=== PATIENT | female | born 1980 | race Caucasian/White ===

== ENCOUNTER 2018-09-12 11:37 | Emergency (ER) | payer SELFPAY ==
[2018-09-12 11:48] VITALS: BP 169/102
--- NOTE | 2018-09-12 12:30 | ED ---
Substance Abuse/Use - HPI Summary HPI Summary: This patient is a 37 year old F presenting to [facility] with a chief complaint withdrawal symptoms. Pt reports she has been on pain medications for 20 years, and would take 60 mg morphine a couple times a day, and recently went off of them cold turkey. She reports vomiting, chills, nausea, diarrhea, abdominal pain , decreased urination, dark urine, and sore back. Pt requests detox, and knows her doctors office has a detox program. Per triage, the patient rates the pain 10/10 in severity. - History Of Current Complaint Chief Complaint: EDDetoxRequest Stated Complaint: BACK PAIN/NAUSEA/VOMITING/DARK URINE PER PT Time Seen by Provider: 09/12/18 12:15 Hx Obtained From: Patient Onset/Duration of Drug/ETOH Abuse: Years - 20 years Ingestion History: Type/Name Of Drug - Morphine, Amount Ingested - 40 mg Timing Of Abuse: Daily Severity Currently: Severe - 10/10 Aggravating Factor(s): Nothing Alleviating Factor(s): Nothing Associated Signs And Symptoms: Nausea, Vomiting, Diarrhea, Other: - pos - chills , abdominal pain, decreased urination, dark urine, sore back - Allergies/Home Medications Allergies/Adverse Reactions: Allergies Allergy/AdvReac Type Severity Reaction Status Date / Time No Known Allergies Allergy Verified 09/12/18 11:49 PMH/Surg Hx/FS Hx/Imm Hx Cardiovascular History: Reports: Hx Hypertension Sensory History: Denies: Hx Legally Blind Infectious Disease History: No Infectious Disease History: Denies: Traveled Outside the [place] in Last 30 Days - Family History Known Family History: Positive: Hypertension Negative: Diabetes - Social History Alcohol Use: Occasionally Substance Use Type: Reports: Other Substance Use Comment - Amount & Last Used: opiates Smoking Status (MU): Unknown if Ever Smoked Review of Systems Positive: Chills Positive: Abdominal Pain, Vomiting, Diarrhea, Nausea Positive: frequency - decreased urination, other - pos - dark urine Positive: Other - pos - sore back All Other Systems Reviewed And Are Negative: Yes Physical Exam - Summary Physical Exam Summary: VITAL SIGNS: Reviewed. GENERAL: Patient is a well-developed and nourished female who is lying comfortable in the stretcher. Patient is not in any acute respiratory distress. HEAD AND FACE: No signs of trauma. No ecchymosis, hematomas or skull depressions. No sinus tenderness. EYES: PERRLA, EOMI x 2, No injected conjunctiva, no nystagmus. EARS: Hearing grossly intact. Ear canals and tympanic membranes are within normal limits. MOUTH: Oropharynx within normal limits. NECK: Supple, trachea is midline, no adenopathy, no JVD, no carotid bruit, no c- spine tenderness, neck with full ROM. CHEST: Symmetric, no tenderness at palpation LUNGS: Clear to auscultation bilaterally. No wheezing or crackles. CVS: Regular rate and rhythm, S1 and S2 present, no murmurs or gallops appreciated. ABDOMEN: Soft, non-tender. No signs of distention. No rebound no guarding, and no masses palpated. Bowel sounds are normal. EXTREMITIES: FROM in all major joints, no edema, no cyanosis or clubbing. NEURO: Alert and oriented x 3. No acute neurological deficits. Speech is normal and follows commands. SKIN: Dry and warm. Triage Information Reviewed: Yes Vital Signs On Initial Exam: Initial Vitals Temp Pulse Resp BP Pulse Ox 97.2 F 102 18 169/102 99 09/12/18 11:47 09/12/18 11:47 09/12/18 11:47 09/12/18 11:47 09/12/18 11:47 Vital Signs Reviewed: Yes Diagnostics - Vital Signs Vital Signs Temp Pulse Resp BP Pulse Ox 09/12/18 11:47 97.2 F 102 18 169/102 99 - Laboratory Lab Statement: Any lab studies that have been ordered have been reviewed, and results considered in the medical decision making process. Re-Evaluation - Re-Evaluation First Eval Re-Evaluation Time: 01:14 Comment: When going to check up on pt was revealed pt had left. Course/Dx - Course Assessment/Plan: This patient is a 37 year old F presenting to [facility] with a chief complaint withdrawal symptoms. Pt reports she has been on pain medications for 20 years, and would take 60 mg morphine a couple times a day, and recently went off of them cold turkey. She reports vomiting, chills, nausea , diarrhea, abdominal pain, decreased urination, dark urine, and sore back. Pt requests detox, and knows her doctors office has a detox program. Per triage, the patient rates the pain 10/10 in severity. Urinalysis shows and a specific gravity of 1.0 39, protein 2+, ketones trace, 2+ blood, -year-old female imaging positive, RBCs 3+, squamous epithelial cells present. I ordered 2,000 mls IV fluids for the patient and for nausea and vomiting. However when the nurse went to give the medications the patient was not found in the room. 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 Patient was advised to return to the ED for hydration and anti-nausea medications however the patient reported that she would go to her [facility]. - Diagnoses Provider Diagnoses: Dehydration Discharge - Sign-Out/Discharge Documenting (check all that apply): Patient Departure - eloped Patient Received Moderate/Deep Sedation with Procedure: No - Discharge Plan Condition: Stable Disposition: ELOPEMENT Referrals: No Primary Care Phys,NOPCP [Primary Care Provider] - - Billing Disposition and Condition Condition: STABLE Disposition: Elopement - Attestation Statements Document Initiated by [place]: Yes Documenting Scribe: Karrie Bedoya Provider For Whom Aaron is Documenting (Include Credential): Dr. Sami Kimball Scribe Attestation: IKarrie scribed for Dr. Sami Kimball on 09/12/18 at 0002. Scribe Documentation Reviewed: Yes Provider Attestation: The documentation as recorded by the Karrie white accurately reflects the service I personally performed and the decisions made by , Dr. Sami Kimball Status of Scribe Document: Viewed
[2018-09-12 13:04] LABS: Urine Appearance Cloudy; Urine Bacteria Absent (Absent); Urine Bilirubin 1+ (Negative); Urine Blood 2+ (Negative); Urine Color Amber; Urine Glucose Negative (Negative); Urine Ketones Trace (Negative); Urine Nitrite Negative (Negative); Urine Protein 2+(100 mg/dL) (Negative); Urine Red Blood Cell 3+(>10/hpf) (Absent); Urine Specific Gravity 1.039 (1.010-1.030); Urine Squamous Epithelial Cell Present (Absent); Urine Urobilinogen Positive (Negative); Urine White Blood Cell Trace(0-5/hpf) (Absent)
[2018-09-12] MEDS ORDERED: Ondansetron ODT TAB* 4 MG SL PRN (13:06)
[2018-09-12] MEDS ORDERED: NS 0.9% 1000 ML** 2,000 ML IV ONE (13:08)
[2018-09-12] MEDS ORDERED: Ondansetron INJ* 2 MG/ML VIAL IV ONE (13:09)
== END 2018-09-12 13:29 | disposition left against medical advice (07) ==
LOC: ED 11:37
DX: E86.0 Dehydration (principal); I10 Essential (primary) hypertension
CPT/HCPCS: 81003; 81015; 87086; 99282